=== PATIENT | female | born 1945 | race African-American/Black ===

== ENCOUNTER 2016-10-29 18:23 | Emergency (ER) | payer OTHER ==
[~2016-10-29] VITALS: Ht 154.9 cm; Wt 95.3 kg
[~2016-10-29 18:23] MED LIST: CIPRO500 MG PO; FARXIGA5 MG PO; FLAGYL500 MG PO; FLONASE 0.05%50 MCG NASAL; GLUCOPHAGE1000 MG PO; HCTZ PO; HYDROCHLOROTHIA25 M1 PO; HYDROCODON-ACE1 EAC7; HYDROCODONE-AP1 EAC6 PO; IBUPROFEN 800800 M1 PO; INDOMETHACIN 5050 MG PO; JANUMET XR 1001 EACH PO; JANUVIA100 MG PO; KLOR-CON 1010 MEQ PO; LIPITOR PO; LISINOPRIL PO; MEDROLDOSEPACK; METFORMIN PO; NORCO 5-325 TA1 EACH PO; PROVENTIL; TESSALON PERLE100 MG PO; ULTRAM50 MG PO; ZESTRIL20 MG PO; ZOCOR40 MG PO; ZPAK PO
[2016-10-29] MEDS ORDERED: KEFLEX500 MG PO (18:48)
== END 2016-10-29 18:56 | disposition home or self-care (01) ==
LOC: ER 18:23
DX: S60.862A Insect bite (nonvenomous) of left wrist, initial encounter (principal); R21 Rash and other nonspecific skin eruption; E11.9 Type 2 diabetes mellitus without complications; I10 Essential (primary) hypertension; E78.00 Pure hypercholesterolemia, unspecified; W57.XXXA Bitten or stung by nonvenomous insect and other nonvenomous arthropods, initial encounter; Y93.89 Activity, other specified; Y92.89 Other specified places as the place of occurrence of the external cause; Y99.8 Other external cause status